=== PATIENT | female | born 1990 | race Caucasian/White ===

== ENCOUNTER 2017-09-06 22:16 | Inpatient (IN) | payer OTHER ==
[~2017-09-06 22:16] MED LIST: METHADONE HCL 10 MG TABLET (FOR DETOX USE ONLY) PO ONE
--- NOTE | 2017-09-06 22:35 | HP ---
COWS - Scale Resting Pulse: 1= [place] 81-100 Sweatin=Flushed/Facial Moisture Restless Observation: 1= Difficult to Sit Still Pupil Size: 1= Pupils >than Normal Bone or Joint Aches: 2= Severe Diffuse Aches Runny Nose/ Eye Tearin= Runny Nose/Eyes GI Upset > 30mins: 1= Stomach Cramp Tremor Observation: 2= Slight Tremor Visible Yawning Observation: 1= 1-2x During Session Anxiety or Irritability: 1=Feels Anxious/Irritable Goose Flesh Skin: 0=Smooth Skin COWS Score: 14 CIWA Score - CIWA Score Nausea/Vomitin Muscle Tremors: 2 Anxiety: 2 Agitation: 2 Paroxysmal Sweats: 2 Orientation: 0-Oriented Tacttile Disturbances: 1-Very Mild Itch/Numbness Auditory Disturbances: 2-Mild Harshness/Frighten Visual Disturbances: 2-Mild Sensitivity Headache: 1-Very Mild CIWA-Ar Total Score: 16 Admission ROS [facility] - HPI Chief Complaint: DEPENDENT ON HEROIN, XANAX, COCAINE AND MARIJUANA Allergies/Adverse Reactions: Allergies Allergy/AdvReac Type Severity Reaction Status Date / Time No Known Allergies Allergy Verified 09/06/17 22:40 History of Present Illness: THE PT. IS REQUESTING ADMISSION TO THE DETOX UNIT AND CAME FOR H AND PE Exam Limitations: Physical Impairment - Ebola screening Have you traveled outside of the country in the last 21 days: No (N) Have you had contact with anyone from an Ebola affected area: No Have you been sick,other than usual withdrawal symptoms: No Do you have a fever: No - Review of Systems Constitutional: See HPI, Malaise, Weakness EENT: reports: See HPI, Nose Congestion Respiratory: reports: See HPI Cardiac: reports: See HPI GI: reports: See HPI, Nausea, Abdominal cramping : reports: No Symptoms Reported, See HPI Musculoskeletal: reports: See HPI, Joint Pain, Joint Swelling, Muscle Pain, Muscle Weakness Integumentary: reports: See HPI, Sweating Neuro: reports: See HPI, Headache, Tremors, Weakness Endocrine: reports: See HPI Hematology: reports: See HPI Psychiatric: reports: Judgement Intact, Anxious, Depressed Patient History - Patient Medical History Hx Asthma: No Hx Hypertension: No Hx Seizures: No Hx Diabetes: No Hx Human Immunodeficiency Virus (HIV): No Hx Hepatitis C: No Hx Depression: Yes (AND ANXIETY) Hx Suicide Attempt: No - Patient Surgical History Past Surgical History: Yes Hx Breast Surgery: Yes (BREAST REDUCTION IN 2013) Hx Orthopedic Surgery: Yes (RT. KNEE ON 08/2017 ) - Reproductive History Patient is a Female of Child Bearing Age (11 -55 yrs old): Yes LMP comment: 2 YRS. AGO Patient : No - Smoking Cessation Smoking history: Current every day smoker Have you smoked in the past 12 months: Yes Aproximately how many cigarettes per day: 7 Hx Chewing Tobacco Use: No Initiated information on smoking cessation: Yes 'Breaking Loose' booklet given: 09/06/17 - Substance & Tx. History Hx Alcohol Use: No Hx Substance Use: Yes Substance Use Type: Heroin, Tranquilizers Hx Substance Use Treatment: No - Substances Abused Heroin Route: Inhalation Frequency: Daily Amount used: 2 B/D Age of first use: 25 Date of Last Use: 09/06/17 Alprazolam (Xanax) Route: Oral Frequency: Daily Amount used: 2 STICKS/D Age of first use: 14 Date of Last Use: 09/06/17 Cocaine Route: Inhalation Frequency: 1-2 times per week Amount used: $20/ONCE A WK Age of first use: 26 Date of Last Use: 09/06/17 Marijuana/Hashish Route: Smoking Frequency: 1-3 times last 30 days Amount used: $10/ONCE A MONTH Age of first use: 13 Date of Last Use: 09/03/17 Family Disease History - Family Disease History Family Disease History: Respiratory: Brother (ASTHMA; ADDICTED TO DRUGS) Admission Physical Exam [facility] Physical General Appearance: Yes: No Apparent Distress, Nourished, Appropriately Dressed , Tremorous, Sweating, Anxious HEENTM: Yes: Hearing grossly Normal, Normocephalic, Normal Voice, GINA, Pharynx Normal Respiratory: Yes: Chest Non-Tender, Lungs Clear, Normal Breath Sounds, No Respiratory Distress, No Accessory Muscle Use Neck: Yes: No masses,lesions,Nodules, Supple, Trachea in good position Breast: Yes: Breast Exam Deferred, Axillae without masses Cardiology: Yes: Regular Rhythm, S1, S2, Tachycardia Abdominal: Yes: Normal Bowel Sounds, Non Tender, Soft, Distended Back: Yes: Normal Inspection Musculoskeletal: Yes: Pelvis Stable, Joint Stiffness, Joint swelling, Muscle Pain, Muscle weakness Extremities: Yes: Normal Capillary Refill, Tremors, Pedal Edema Neurological: Yes: photography manager II-XII NML intact, Fully Oriented, Alert, Motor Strength 5/5, Normal Response, Depressed Affect Integumentary: Yes: Normal Color, Warm, Moist Lymphatic: Yes: Within Normal Limits - Addiitonal Findings: HAD SURGERY ON RT. KNEE AND RT. LOWER LIMB IS SWOLLEN AND THE MOVEMENT AT RT. KNEE LEVEL ARE LIMITED AND TENDER. SHE IS USING A CANE TO WALK. - Diagnostic (1) Heroin dependence Current Visit: Yes Status: Acute (2) Benzodiazepine dependence Current Visit: Yes Status: Acute (3) Cocaine dependence Current Visit: Yes Status: Acute Qualifiers: Substance use status: uncomplicated Qualified Code(s): F14.20 - Cocaine dependence, uncomplicated (4) Cannabis dependence Current Visit: Yes Status: Acute (5) Anxiety and depression Current Visit: Yes Status: Acute (6) Nicotine dependence Current Visit: Yes Status: Acute Qualifiers: Nicotine product type: cigarettes Substance use status: uncomplicated Qualified Code(s): F17.210 - Nicotine dependence, cigarettes, uncomplicated Cleared for Admission [facility] - Detox or Rehab [facility] Level of Care: Medically Supervised Detox Regimen/Protocol: Methadone/Valium S Breath Alcohol Content Breath Alcohol Content: 0
[2017-09-06 22:37] VITALS: BMI 29.2
[2017-09-06] MEDS ORDERED: METHADONE HCL 10 MG TABLET (FOR DETOX USE ONLY) PO ONE ×2 (22:47→23:00)
[2017-09-06] MEDS ORDERED: MAGNESIUM CITRATE 300 ML BOTTLE PO PRN (22:47)
[2017-09-06] MEDS ORDERED: diazePAM 5 MG TABLET PO ONE (22:47)
[2017-09-06] MEDS ORDERED: hydrOXYzine PAMOATE 25 MG CAPSULE (FP) PO PRN (22:47)
[2017-09-06] MEDS ORDERED: MENTHOL/PHENOL 1 EACH UD MM PRN (22:47)
[2017-09-06] MEDS ORDERED: MAGNESIUM HYDROX 2400MG/30ML ORAL SUSPENSION 30 ML CUP PO PRN (22:47)
[2017-09-06] MEDS ORDERED: guaiFENesin/D-METHORPHAN HB 10 ML UNIT-DOSE CUPS PO PRN (22:47)
[2017-09-06] MEDS ORDERED: P-EPHED 60MG/TRIPROLIDI 2.5MG TABLET PO PRN (22:47)
[2017-09-06] MEDS ORDERED: MAG HYDROX/AL HYDROX/SIMETH 30 ML UNIT-DOSE CUP PO PRN (22:47)
[2017-09-06] MEDS ORDERED: ACETAMINOPHEN 325 MG TABLET (FP) PO PRN (22:47)
[2017-09-06] MEDS ORDERED: LOPERAMIDE HCL 2 MG CAPSULE PO PRN (22:47)
[2017-09-06] MEDS: diazePAM 5 MG TABLET PO SCH (23:57)
[2017-09-07 02:00] LABS: URINE APPEARANCE SLCLOUDY; URINE BLOOD NEGATIVE (NEGATIVE); URINE COLOR AMBER; URINE GLUCOSE (UA) NEGATIVE (NEGATIVE); URINE KETONE TRACE (NEGATIVE); URINE LEUK ESTERASE TRACE (NEGATIVE); URINE NITRITE NEGATIVE (NEGATIVE); URINE PROTEIN NEGATIVE (NEGATIVE)
[2017-09-07 02:08] LABS: EPI CELLS RARE /HPF (FEW); URINE HYALINE CAST 2 /lpf; URINE MUCUS FEW
[2017-09-07] MEDS: diazePAM 5 MG TABLET PO SCH ×2 (06:22→15:00)
[2017-09-07] MEDS ORDERED: METHADONE HCL 10 MG TABLET (FOR DETOX USE ONLY) PO SCH (10:00)
[2017-09-07 10:03] LABS: HEMATOCRIT 35.9 % (32.4-45.2); HEMOGLOBIN 11.5 GM/dL (10.7-15.3); MCH 29.2 pg (25.7-33.7); MCHC 32.2 g/dl (32.0-36.0); MEAN CELL VOLUME 90.8 fl (80-96); MEAN PLT VOLUME 7.1 fl (7.5-11.1); PLATELET COUNT 289 K/MM3 (134-434); RBC 3.95 M/mm3 (3.60-5.2); WHITE BLOOD COUNT 7.7 K/mm3 (4.0-10.0)
[2017-09-07] MEDS: PRENATAL VITAMINS W/ FOLIC ACID TABLET (FP) PO SCH (10:27)
[2017-09-07 10:28] LABS: ALBUMIN 2.9 g/dl (3.4-5.0); ANION GAP 6 (8-16); BLOOD UREA NITROGEN 12 mg/dL (7-18); CALCIUM 8.1 mg/dL (8.5-10.1); CHLORIDE 104 mmol/L (98-107); CO2 30 mmol/L (21-32); GLUCOSE,RANDOM 97 mg/dL (74-106); POTASSIUM 4.3 mmol/L (3.5-5.1); SODIUM 140 mmol/L (136-145)
[2017-09-07] MEDS: NICOTINE 14 MG/24 HOURS TOPICAL PATCH TD SCH (10:29)
[2017-09-07 10:32] LABS: ALK PHOS 63 U/L (45-117); BILIRUBIN,TOTAL 0.4 mg/dL (0.2-1.0); CREATININE 0.8 mg/dL (0.55-1.02); SGOT/AST 10 U/L (15-37); SGPT/ALT 18 U/L (12-78); TOT PROT 6.1 g/dl (6.4-8.2)
--- NOTE | 2017-09-07 10:32 | EKG ---
Test Reason : Blood Pressure : / mmHG Vent. Rate : 066 BPM Atrial Rate : 066 BPM P-R Int : 142 ms QRS Dur : 082 ms QT Int : 412 ms P-R-T Axes : 067 066 050 degrees QTc Int : 431 ms NORMAL SINUS RHYTHM WITH SINUS ARRHYTHMIA NORMAL ECG NO PREVIOUS ECGS AVAILABLE BASELINE ARTIFACT Confirmed by YANE LANG, ELSY ([id number]) on 09/07/2017 10:31:48 AM Referred By: Confirmed By:ELSY CHE MD
--- NOTE | 2017-09-07 13:56 | PN ---
[facility] CIWA - CIWA Score Nausea/Vomitin Muscle Tremors: 3 Anxiety: 3 Agitation: 3 Paroxysmal Sweats: 3 Orientation: 0-Oriented Tacttile Disturbances: 1-Very Mild Itch/Numbness Auditory Disturbances: 0-None Visual Disturbances: 0-None Headache: 0-None Present CIWA-Ar Total Score: 15 S COWS - Scale Resting Pulse: 0= [place] 80 or Below Sweatin=Flushed/Facial Moisture Restless Observation: 1= Difficult to Sit Still Pupil Size: 0= Normal to Room Light Bone or Joint Aches: 1= Mild Discomfort Runny Nose/ Eye Tearin= Runny Nose/Eyes GI Upset > 30mins: 1= Stomach Cramp Tremor Observation of Outstretched Hands: 2= Slight Tremor Visible Yawning Observation: 0= None Anxiety or Irritability: 2=Irritable/Anxious Goose Flesh Skin: 0=Smooth Skin COWS Score: 11 S Progress Note (SOAP) Subjective: withdrawal sx Objective: 09/07/17 13:53 Vital Signs Temperature 99.5 F 09/07/17 06:00 Pulse Rate 62 09/07/17 06:00 Respiratory Rate 18 09/07/17 06:00 Blood Pressure 99/66 09/07/17 06:00 O2 Sat by Pulse Oximetry (%) Laboratory Last Values WBC 7.7 K/mm3 (4.0-10.0) 09/07/17 07:45 RBC 3.95 M/mm3 (3.60-5.2) 09/07/17 07:45 Hgb 11.5 GM/dL (10.7-15.3) 09/07/17 07:45 Hct 35.9 % (32.4-45.2) 09/07/17 07:45 MCV 90.8 fl (80-96) 09/07/17 07:45 MCH 29.2 pg (25.7-33.7) 09/07/17 07:45 MCHC 32.2 g/dl (32.0-36.0) 09/07/17 07:45 RDW 13.0 % (11.6-15.6) 09/07/17 07:45 Plt Count 289 K/MM3 (134-434) 09/07/17 07:45 MPV 7.1 fl (7.5-11.1) L 09/07/17 07:45 Sodium 140 mmol/L (136-145) 09/07/17 07:45 Potassium 4.3 mmol/L (3.5-5.1) 09/07/17 07:45 Chloride 104 mmol/L (98-107) 09/07/17 07:45 Carbon Dioxide 30 mmol/L (21-32) 09/07/17 07:45 Anion Gap 6 (8-16) L 09/07/17 07:45 BUN 12 mg/dL (7-18) 09/07/17 07:45 Creatinine 0.8 mg/dL (0.55-1.02) 09/07/17 07:45 Creat Clearance w eGFR > 60 (>60) 09/07/17 07:45 Random Glucose 97 mg/dL (74-106) 09/07/17 07:45 Calcium 8.1 mg/dL (8.5-10.1) L 09/07/17 07:45 Total Bilirubin 0.4 mg/dL (0.2-1.0) 09/07/17 07:45 AST 10 U/L (15-37) L 09/07/17 07:45 ALT 18 U/L (12-78) 09/07/17 07:45 Alkaline Phosphatase 63 U/L (45-117) 09/07/17 07:45 Total Protein 6.1 g/dl (6.4-8.2) L 09/07/17 07:45 Albumin 2.9 g/dl (3.4-5.0) L 09/07/17 07:45 Urine Color [place] 09/06/17 23:32 Urine Appearance Slcloudy 09/06/17 23:32 Urine pH 5.0 (5.0-8.0) 09/06/17 23:32 Ur Specific [place] 1.039 (1.001-1.035) H 09/06/17 23:32 Urine Protein Negative (NEGATIVE) 09/06/17 23:32 Urine Glucose (UA) Negative (NEGATIVE) 09/06/17 23:32 Urine Ketones Trace (NEGATIVE) H 09/06/17 23:32 Urine Blood Negative (NEGATIVE) 09/06/17 23:32 Urine Nitrite Negative (NEGATIVE) 09/06/17 23:32 Urine Bilirubin 2.0 (NEGATIVE) 09/06/17 23:32 Urine Urobilinogen 2.0 mg/dL (0.2-1.0) H 09/06/17 23:32 Ur Leukocyte Esterase Negative (NEGATIVE) 09/06/17 23:32 Urine WBC (Auto) <1 /hpf (3-5) 09/06/17 23:32 Urine RBC (Auto) 1 /hpf (0-3) 09/06/17 23:32 Ur Epithelial Cells Rare /HPF (FEW) 09/06/17 23:32 Hyaline Casts 2 /lpf 09/06/17 23:32 Urine Mucus Few 09/06/17 23:32 RPR Titer Nonreactive (NONREACTIVE) 09/07/17 07:45 labs noted Assessment: 09/07/17 13:56 withdrawal sx Plan: continue detox
[2017-09-07] MEDS: IBUPROFEN 400 MG TABLET (FP) PO PRN (18:55)
[2017-09-07] MEDS: diazePAM 5 MG TABLET PO PRN (18:55)
[2017-09-08] MEDS: THIAMINE HCL 100 MG TABLET (FP) PO SCH ×2 (00:12→22:56)
[2017-09-08] MEDS: diazePAM 5 MG TABLET PO SCH ×3 (00:12→22:57)
--- NOTE | 2017-09-08 10:26 | PN ---
[facility] CIWA - CIWA Score Nausea/Vomitin Muscle Tremors: 3 Anxiety: 3 Agitation: 2 Paroxysmal Sweats: 1-Minimal Palms Moist Orientation: 0-Oriented Tacttile Disturbances: 1-Very Mild Itch/Numbness Auditory Disturbances: 1-Very Mild Visual Disturbances: 0-None Headache: 2-Mild CIWA-Ar Total Score: 16 BHS COWS - Scale Resting Pulse: 0= [place] 80 or Below Sweatin= Chills/Flushing Restless Observation: 3= Extraneous Movement Pupil Size: 1= Pupils >than Normal Bone or Joint Aches: 2= Severe Diffuse Aches Runny Nose/ Eye Tearin= Runny Nose/Eyes GI Upset > 30mins: 2= Nausea/Diarrhea Tremor Observation of Outstretched Hands: 2= Slight Tremor Visible Yawning Observation: 1= 1-2x During Session Anxiety or Irritability: 2=Irritable/Anxious Goose Flesh Skin: 0=Smooth Skin COWS Score: 16 [facility] Progress Note (SOAP) Subjective: ALERT,IRRITABLE,ANXIOUS,INTERRUPTED SLEEP,TREMOR,PAIN IN THE BODY AND BACK Objective: 09/08/17 10:24 Vital Signs Temperature 97.8 F 09/08/17 10:00 Pulse Rate 60 09/08/17 10:00 Respiratory Rate 18 09/08/17 10:00 Blood Pressure 110/60 09/08/17 10:00 O2 Sat by Pulse Oximetry (%) Laboratory Last Values WBC 7.7 K/mm3 (4.0-10.0) 09/07/17 07:45 RBC 3.95 M/mm3 (3.60-5.2) 09/07/17 07:45 Hgb 11.5 GM/dL (10.7-15.3) 09/07/17 07:45 Hct 35.9 % (32.4-45.2) 09/07/17 07:45 MCV 90.8 fl (80-96) 09/07/17 07:45 MCH 29.2 pg (25.7-33.7) 09/07/17 07:45 MCHC 32.2 g/dl (32.0-36.0) 09/07/17 07:45 RDW 13.0 % (11.6-15.6) 09/07/17 07:45 Plt Count 289 K/MM3 (134-434) 09/07/17 07:45 MPV 7.1 fl (7.5-11.1) L 09/07/17 07:45 Sodium 140 mmol/L (136-145) 09/07/17 07:45 Potassium 4.3 mmol/L (3.5-5.1) 09/07/17 07:45 Chloride 104 mmol/L (98-107) 09/07/17 07:45 Carbon Dioxide 30 mmol/L (21-32) 09/07/17 07:45 Anion Gap 6 (8-16) L 09/07/17 07:45 BUN 12 mg/dL (7-18) 09/07/17 07:45 Creatinine 0.8 mg/dL (0.55-1.02) 09/07/17 07:45 Creat Clearance w eGFR > 60 (>60) 09/07/17 07:45 Random Glucose 97 mg/dL (74-106) 09/07/17 07:45 Calcium 8.1 mg/dL (8.5-10.1) L 09/07/17 07:45 Total Bilirubin 0.4 mg/dL (0.2-1.0) 09/07/17 07:45 AST 10 U/L (15-37) L 09/07/17 07:45 ALT 18 U/L (12-78) 09/07/17 07:45 Alkaline Phosphatase 63 U/L (45-117) 09/07/17 07:45 Total Protein 6.1 g/dl (6.4-8.2) L 09/07/17 07:45 Albumin 2.9 g/dl (3.4-5.0) L 09/07/17 07:45 Urine Color [place] 09/06/17 23:32 Urine Appearance Slcloudy 09/06/17 23:32 Urine pH 5.0 (5.0-8.0) 09/06/17 23:32 Ur Specific [place] 1.039 (1.001-1.035) H 09/06/17 23:32 Urine Protein Negative (NEGATIVE) 09/06/17 23:32 Urine Glucose (UA) Negative (NEGATIVE) 09/06/17 23:32 Urine Ketones Trace (NEGATIVE) H 09/06/17 23:32 Urine Blood Negative (NEGATIVE) 09/06/17 23:32 Urine Nitrite Negative (NEGATIVE) 09/06/17 23:32 Urine Bilirubin 2.0 (NEGATIVE) 09/06/17 23:32 Urine Urobilinogen 2.0 mg/dL (0.2-1.0) H 09/06/17 23:32 Ur Leukocyte Esterase Negative (NEGATIVE) 09/06/17 23:32 Urine WBC (Auto) <1 /hpf (3-5) 09/06/17 23:32 Urine RBC (Auto) 1 /hpf (0-3) 09/06/17 23:32 Ur Epithelial Cells Rare /HPF (FEW) 09/06/17 23:32 Hyaline Casts 2 /lpf 09/06/17 23:32 Urine Mucus Few 09/06/17 23:32 RPR Titer Nonreactive (NONREACTIVE) 09/07/17 07:45 Assessment: 09/08/17 10:25 WITHDRAWAL SYMPTOM Plan: CONTINUE DETOX
[2017-09-08] MEDS: NICOTINE 14 MG/24 HOURS TOPICAL PATCH TD SCH (11:07)
[2017-09-08] MEDS: METHADONE HCL 5 MG TABLET (FOR DETOX USE ONLY) PO SCH (11:07)
[2017-09-08] MEDS: PRENATAL VITAMINS W/ FOLIC ACID TABLET (FP) PO SCH (11:07)
--- NOTE | 2017-09-08 12:06 | PN ---
[facility] Progress Note Note: A psychiatric consult for evaluation was requested yesterday. She declined to be seen
--- NOTE | 2017-09-09 09:43 | PN ---
S Progress Note (SOAP) Subjective: ALERT,IRRITABLE,ANXIOUS,INTERRUPTED SLEEP,PAIN IN THE BODY Objective: 09/09/17 09:42 Vital Signs Temperature 98.2 F 09/09/17 05:49 Pulse Rate 56 L 09/09/17 05:49 Respiratory Rate 16 09/09/17 05:49 Blood Pressure 124/56 09/09/17 05:49 O2 Sat by Pulse Oximetry (%) Assessment: 09/09/17 09:42 WITHDRAWAL SYMPTOM Plan: CONTINUE DETOX
[2017-09-09] MEDS: METHADONE HCL 5 MG TABLET (FOR DETOX USE ONLY) PO SCH (10:10)
[2017-09-09] MEDS: NICOTINE 14 MG/24 HOURS TOPICAL PATCH TD SCH (10:11)
[2017-09-09] MEDS: PRENATAL VITAMINS W/ FOLIC ACID TABLET (FP) PO SCH (10:11)
[2017-09-09] MEDS: diazePAM 5 MG TABLET PO SCH ×2 (10:11→22:01)
[2017-09-09] MEDS: diazePAM 5 MG TABLET PO PRN (20:16)
[2017-09-09] MEDS: THIAMINE HCL 100 MG TABLET (FP) PO SCH (22:01)
--- NOTE | 2017-09-10 09:03 | PN ---
S Progress Note (SOAP) Subjective: ALERT,IRRITABLE,ANXIOUS,INTERRUPTED SLEEP, Objective: 09/10/17 09:03 Vital Signs Temperature 98.2 F 09/10/17 06:12 Pulse Rate 77 09/10/17 06:12 Respiratory Rate 18 09/10/17 06:12 Blood Pressure 110/70 09/10/17 06:12 O2 Sat by Pulse Oximetry (%) Assessment: 09/10/17 09:03 WITHDRAWAL SYMPTOM Plan: CONTINUE DETOX,DISCHARGE IN AM
[2017-09-10] MEDS ORDERED: METHADONE HCL 10 MG TABLET (FOR DETOX USE ONLY) PO SCH (10:00)
[2017-09-10] MEDS ORDERED: diazePAM 5 MG TABLET PO SCH (10:00)
[2017-09-10] MEDS: NICOTINE 14 MG/24 HOURS TOPICAL PATCH TD SCH (10:17)
[2017-09-10] MEDS: PRENATAL VITAMINS W/ FOLIC ACID TABLET (FP) PO SCH (10:17)
[2017-09-10] MEDS: IBUPROFEN 400 MG TABLET (FP) PO PRN (10:18)
--- NOTE | 2017-09-10 13:36 | PN ---
[facility] Progress Note Note: patient is stable for discharge today
--- NOTE | 2017-09-10 13:42 | DS ---
[facility] Detox Discharge Summary Admission Date: 09/06/17 Discharge Date: 09/10/17 - History Present History: Cocaine Dependence, Opioid Dependence, Sedative Dependence Additional Comments: follow up with after care program as arrangement Pertinent Past History: anxiety and depression - Physical Exam Results Vital Signs: Vital Signs Temperature 98.1 F 09/10/17 10:36 Pulse Rate 55 L 09/10/17 10:36 Respiratory Rate 18 09/10/17 10:36 Blood Pressure 114/66 09/10/17 10:36 O2 Sat by Pulse Oximetry (%) Pertinent Admission Physical Exam Findings: withdrawal symptom - Treatment Hospital Course: Detox Protocol Followed, Detoxed Safely, Responded well, Discharged Condition Good - Medication Discharge Medications: Ambulatory Orders NK [No Known Home Medication] 09/06/17 - Diagnosis (1) Opioid dependence with withdrawal Current Visit: Yes Status: Acute (2) Anxiety and depression Current Visit: Yes Status: Acute (3) Benzodiazepine dependence Current Visit: Yes Status: Acute (4) Cannabis dependence Current Visit: Yes Status: Acute (5) Cocaine dependence Current Visit: Yes Status: Acute Qualifiers: Substance use status: uncomplicated Qualified Code(s): F14.20 - Cocaine dependence, uncomplicated (6) Nicotine dependence Current Visit: Yes Status: Acute Qualifiers: Nicotine product type: cigarettes Substance use status: uncomplicated Qualified Code(s): F17.210 - Nicotine dependence, cigarettes, uncomplicated - AMA Did Patient Leave Against Medical Advice: No
[2017-09-10 13:57] VITALS: BP 122/60; PULSE 68; TEMP 98.2
[2017-09-11] MEDS ORDERED: METHADONE HCL 5 MG TABLET (FOR DETOX USE ONLY) PO SCH (06:00)
== END 2017-09-10 14:05 | disposition home or self-care (01) | DRG 773 ==
LOC: YASAS 22:16 → Y6N 22:47
PROVIDERS: ADMIT Internal Medicine; ATTEND Internal Medicine
PROC: HZ2ZZZZ Detoxification Services for Substance Abuse Treatment (ICD-10-PCS; principal; 2017-09-06)
DX: F11.23 Opioid dependence with withdrawal (principal); F13.230 Sedative, hypnotic or anxiolytic dependence with withdrawal, uncomplicated; F14.20 Cocaine dependence, uncomplicated; F12.20 Cannabis dependence, uncomplicated; F17.210 Nicotine dependence, cigarettes, uncomplicated; F41.8 Other specified anxiety disorders
CPT/HCPCS: 36415; 80053; 81003; 81015; 85027; 86593; 93005; 93010

== ENCOUNTER 2023-09-25 05:36 | Inpatient (IN) | payer OTHER ==
[2023-09-25 06:28] VITALS: BMI 32.8
[2023-09-25] MEDS ORDERED: DICYCLOMINE HCL 10 MG CAPSULE PO PRN (09:16)
[2023-09-25] MEDS ORDERED: BENZOCAINE/MENTHOL (CHLORASEPTIC ) LOZENGE MM PRN (09:16)
[2023-09-25] MEDS ORDERED: NICOTINE POLACRILEX 2 MG LOZENGE BC PRN (09:16)
[2023-09-25] MEDS ORDERED: LOPERAMIDE HCL 2 MG CAPSULE PO PRN (09:16)
[2023-09-25] MEDS ORDERED: IBUPROFEN 400 MG TABLET (FP) PO PRN (09:16)
[2023-09-25] MEDS ORDERED: NALOXONE HCL 0.4 MG/ML VIAL IM PRN (09:16)
[2023-09-25] MEDS ORDERED: ONDANSETRON *ODT* 4 MG TABLET SL PRN (09:16)
[2023-09-25] MEDS ORDERED: BENZONATATE 200 MG CAPSULE PO PRN (09:16)
[2023-09-25] MEDS ORDERED: ACETAMINOPHEN 325 MG TABLET (FP) PO PRN (09:16)
[2023-09-25] MEDS ORDERED: MAGNESIUM HYDROX 2400MG/30ML ORAL SUSPENSION 30 ML CUP PO PRN (09:16)
[2023-09-25] MEDS ORDERED: MAG HYDROX/AL HYDROX/SIMETH 30 ML UNIT-DOSE CUP PO PRN (09:16)
[2023-09-25] MEDS ORDERED: P-EPHED 60MG/TRIPROLIDI 2.5MG TABLET PO PRN (09:16)
[2023-09-25] MEDS ORDERED: guaiFENesin 600 MG TABLET.ER (FP) PO PRN (09:16)
[2023-09-25] MEDS ORDERED: NALOXONE HCL (KLOXXADO) 8 MG SPRAY NS PRN (09:16)
[2023-09-25] MEDS ORDERED: BISMUTH SUBSALICYLATE 524 MG/30 ML PO PRN (09:16)
[2023-09-25] MEDS ORDERED: IBUPROFEN 600 MG TABLET (FP) PO PRN (09:16)
[2023-09-25] MEDS ORDERED: POLYETHYLENE GLYCOL (HEALTHYLAX) 3350 17 GM PACKET PO PRN (09:16)
[2023-09-25] MEDS: PRENATAL VITAMINS W/ FOLIC ACID TABLET (FP) PO SCH (10:52)
[2023-09-25] MEDS: MELATONIN 5 MG TABLETS PO SCH (22:13)
[2023-09-25] MEDS: THIAMINE HCL 100 MG TABLET (FP) PO SCH (22:13)
[2023-09-26] MEDS: METHOCARBAMOL 500 MG TABLET PO PRN (06:43)
[2023-09-26] MEDS: PRENATAL VITAMINS W/ FOLIC ACID TABLET (FP) PO SCH (10:33)
[2023-09-26 10:50] LABS: HEMATOCRIT 38.5 % (32.4-45.2); HEMOGLOBIN 12.6 GM/dL (10.7-15.3); MCH 29.7 pg (25.7-33.7); MCHC 32.8 g/dl (32.0-36.0); MEAN CELL VOLUME 90.6 fl (80-96); MEAN PLT VOLUME 7.1 fl (7.5-11.1); PLATELET COUNT 327 10^3/uL (134-434); RBC 4.25 M/mm3 (3.60-5.2); RDW 13.7 % (11.6-15.6); WHITE BLOOD COUNT 5.6 K/mm3 (4.0-10.0)
[2023-09-26 10:58] LABS: POTASSIUM 4.5 mmol/L (3.5-5.1)
[2023-09-26 11:17] LABS: CALCIUM 9.2 mg/dL (8.5-10.1)
[2023-09-26 11:18] LABS: ALBUMIN 3.2 g/dl (3.4-5.0); BLOOD UREA NITROGEN 13.5 mg/dL (7-18)
[2023-09-26 11:21] LABS: CREATININE 0.7 mg/dL (0.55-1.3)
[2023-09-26 11:23] LABS: BILIRUBIN,TOTAL 0.4 mg/dL (0.2-1); TOT PROT 6.6 g/dl (6.4-8.2)
[2023-09-26] MEDS: THIAMINE HCL 100 MG TABLET (FP) PO SCH (22:29)
[2023-09-26] MEDS: MELATONIN 5 MG TABLETS PO SCH (22:29)
[2023-09-27] MEDS: PRENATAL VITAMINS W/ FOLIC ACID TABLET (FP) PO SCH (10:25)
[2023-09-27] MEDS: THIAMINE HCL 100 MG TABLET (FP) PO SCH (22:29)
[2023-09-27] MEDS: MELATONIN 5 MG TABLETS PO SCH (22:29)
[2023-09-27] MEDS: hydrOXYzine PAMOATE 25 MG CAPSULE (FP) PO PRN (22:29)
[2023-09-28] MEDS: PRENATAL VITAMINS W/ FOLIC ACID TABLET (FP) PO SCH (10:33)
[2023-09-28] MEDS: hydrOXYzine PAMOATE 25 MG CAPSULE (FP) PO PRN (10:33)
[2023-09-28] MEDS: METHOCARBAMOL 500 MG TABLET PO PRN (10:33)
[2023-09-28] MEDS: MELATONIN 5 MG TABLETS PO SCH (21:55)
[2023-09-28] MEDS: THIAMINE HCL 100 MG TABLET (FP) PO SCH (21:55)
[2023-09-29 09:36] VITALS: RESP 18
[2023-09-29] MEDS: PRENATAL VITAMINS W/ FOLIC ACID TABLET (FP) PO SCH (11:16)
[2023-09-29 13:17] VITALS: BP 102/60; PULSE 102; TEMP 97.8
== END 2023-09-29 15:35 | disposition home or self-care (01) | DRG 773 ==
LOC: YASAS 05:36 → Y3N 09:31
PROVIDERS: ADMIT Allergy & Immunology; ATTEND Allergy & Immunology
PROC: HZ2ZZZZ Detoxification Services for Substance Abuse Treatment (ICD-10-PCS; principal; 2023-09-25)
DX: F11.20 Opioid dependence, uncomplicated (principal); F15.10 Other stimulant abuse, uncomplicated; F12.20 Cannabis dependence, uncomplicated; F17.210 Nicotine dependence, cigarettes, uncomplicated; M54.50 Low back pain, unspecified; G89.29 Other chronic pain
CPT/HCPCS: 36415; 80053; 81025; 85027; 86780; 87635; 87811